=== PATIENT | male | born 1985 | race Caucasian/White ===

== ENCOUNTER 2016-11-11 23:14 | Emergency (ER) | payer OTHER ==
[~2016-11-11] VITALS: Ht 185.4 cm; Wt 90.7 kg
[2016-11-11 23:43] VITALS: BP 135/75
--- NOTE | 2016-11-12 00:02 | ED HAND/WRIST INJURY COMPLAINT ---
History of Present Illness General Chief Complaint: Laceration Procedure Stated Complaint: RT HAND LAC FROM GLASS WHILE WASHING DISHES Source: patient Exam Limitations: no limitations Vital Signs & Intake/Output Vital Signs & Intake/Output Vital Signs Date Time Temp Pulse Resp B/P Pulse O2 O2 Flow FiO2 Ox Delivery Rate 11/11 2343 98.5 56 18 135/75 98 Room Air ED Intake and Output 11/12 0000 11/11 1200 Intake Total Output Total Balance Patient 200 lb Weight Allergies Coded Allergies: No Known Allergies (11/11/16) Reconcile Medications Escitalopram Oxalate 10 MG TABLET 1 TAB PO DAILY GERD (Reported) Triage Note: PT PRESENTS WITH 1 CM LAC RIGHT PALM THAT OCCURED AN HOUR AGO WITH GLASS CUP. BLEEDING CONTROLLED. PT REPORTS GETTING TETANUS LAST YEAR Triage Nurses Notes Reviewed? yes Occurred: just prior to arrival Duration: minute(s): Timing: recent history Injury Environment: home No Modifying Factors: none HPI: 31-year-old male comes into emergency room for further evaluation of laceration to right hand. Patient cut it on a piece of glass while doing dishes. Small superficial cut. Tetanus shot up-to-date. Mild throbbing pain. Patient irrigated under water. Patient does not feel any foreign body sensation. (KRISTOFER RIOS) Past History Travel History Traveled to [place] past 21 day No Medical History Any Pertinent Medical History? none Surgical History Surgical History: non-contributory Psychosocial History What is your primary language Brazilian Tobacco Use: Never used Family History Hx Contributory? No (KRISTOFER RIOS) Review of Systems Review of Systems Constitutional: Reports: no symptoms. EENTM: Reports: no symptoms. Respiratory: Reports: no symptoms. Cardiovascular: Reports: no symptoms. GI: Reports: no symptoms. Genitourinary: Reports: no symptoms. Musculoskeletal: Reports: see HPI. Skin: Reports: see HPI. Neurological/Psychological: Reports: no symptoms. Hematologic/Endocrine: Reports: no symptoms. Immunologic/Allergic: Reports: no symptoms. All Other Systems: Reviewed and Negative (KRISTOFER RIOS) Physical Exam Physical Exam General Appearance: well developed/nourished Head: atraumatic Eyes: Bilateral: normal appearance. Ears, Nose, Throat: normal ENT inspection, hearing grossly normal Neck: normal inspection Cardiovascular/Respiratory: no respiratory distress Back: normal inspection Wrist Right: normal range of motion, normal inspection Hand Left: normal inspection, normal range of motion Hand Right: small superficial laceration to right hand, 0.5 cm, Neurologic/Tendon: normal sensation, normal motor functions, normal tendon functions, responds to pain, no evidence tendon injury, no pulse deficit Skin: intact, normal color, warm/dry Lymphatic: no anterior cervical meme (KRISTOFER RIOS) Progress Differential Diagnosis: cellulitis, contusion, fracture, paronychia, septic arthritis, sprain, tenosynovitis Plan of Care: No suspicion for foreign body at this time. Discussed possibility with patient. Watch for signs of infection. Superficial. No need for sutures. (KRISTOFER RIOS) Departure Departure Disposition: HOME OR SELF CARE Condition: Stable Clinical Impression Primary Impression: Laceration of right hand Referrals: YANE NAM MD (PCP/Family) Additional Instructions: Keep covered with dry dressing. Return if any redness swelling discharge fever chills. At this time there is no evidence of foreign body but mildly cannot be ruled out without x-ray. Have wound rechecked by primary care doctor. Please go over all results of today's visit with your primary care doctor. Contact your primary care doctor to let them know you were here in the emergency room. There may be nonspecific findings which may not be related to your visit today here in the emergency room but may require further evaluation and chronic monitoring by your primary care doctor. If you had a laceration today the chance of foreign body always remains. You should follow-up with your primary care doctor for recheck in 3-5 days for a wound check. If you had an x-ray done there is a chance that a fracture could have been missed on initial read and you should follow-up with your primary care doctor for repeat x-rays if symptoms persist. If your blood pressure was elevated here in the emergency room please have rechecked by her primary care doctor within the next 48 hours by your primary care doctor. If you were prescribed a narcotic here in the emergency room or any type of controlled substances you're not allowed to drive while taking this medication or operate any type of heavy machinery. Narcotics can make you feel lightheaded dizziness nausea and can cause constipation. You may need to pick up truck driver a stool softener. Thank you for choosing [facility] emergency room. Please return to the emergency room immediately if you have any other concerns worsening of symptoms. Departure Forms: [place] Survey General Discharge Information (KRISTOFER RIOS) PA/ASSOCIATE SCHOOL PSYCHOLOGIST Co-Sign Statement Statement: ED Attending supervision documentation- [] I saw and evaluated the patient. I have also reviewed all the pertinent lab results and diagnostic results. I agree with the findings and the plan of care as documented in the PA's/ASSOCIATE SCHOOL PSYCHOLOGIST's documentation. [x] I have reviewed the ED Record and agree with the PA's/ASSOCIATE SCHOOL PSYCHOLOGIST's documentation. [] Additions or exceptions (if any) to the PAs/ASSOCIATE SCHOOL PSYCHOLOGIST's note and plan are summarized below: [] (STACI TOMPKINS,JOSE Milton) Procedures Laceration/Wound Repair Progress: 0.5 cm laceration to right palm, superficial, Dermabond, irrigated with peroxide , dry dressing placed, tetanus up-to-date, (KRISTOFER RIOS)
[2016-11-12] MEDS ORDERED: ESCITALOPRAM OX10 MG PO (00:31)
== END 2016-11-12 00:31 ==
LOC: ERH 23:14
DX: S61.411A Laceration without foreign body of right hand, initial encounter (principal); W25.XXXA Contact with sharp glass, initial encounter; Y93.G1 Activity, food preparation and clean up; Y92.009 Unspecified place in unspecified non-institutional (private) residence as the place of occurrence of the external cause